=== PATIENT | male | born 1960 | race Caucasian/White ===

== ENCOUNTER 2017-06-29 15:21 | Emergency (ER) | payer OTHER ==
[2017-06-29] MEDS ORDERED: FISH OIL 1,2001 CAP PO (15:24)
[2017-06-29] MEDS ORDERED: ASPIRIN81 M2 PO (15:24)
[2017-06-29] MEDS ORDERED: LIPITOR (15:25)
[2017-06-29] MEDS ORDERED: CALAN (15:26)
== END 2017-06-29 16:32 | disposition home or self-care (01) ==
LOC: SED 15:21
DX: S16.1XXA Strain of muscle, fascia and tendon at neck level, initial encounter (principal); I10 Essential (primary) hypertension; E78.5 Hyperlipidemia, unspecified; Z79.899 Other long term (current) drug therapy; Z79.82 Long term (current) use of aspirin; V43.92XA Unspecified car occupant injured in collision with other type car in traffic accident, initial encounter
CPT/HCPCS: 96372; 99283; J1885